=== PATIENT | male | born 1980 | race American Indian/Alaskan Native ===

== ENCOUNTER 2016-09-17 09:56 | Outpatient (CLI) | payer OTHER ==
--- NOTE | 2016-09-17 10:33 | XRay Report ---
RIGHT HAND RADIOGRAPHS INDICATION: Right hand pain. COMPARISON: None similar at this institution. FINDINGS: AP, lateral and oblique right hand radiographs demonstrate normal bones and joints. Mild to moderate dorsal soft tissue swelling noted. No radiopaque foreign body. CONCLUSION: Right hand dorsal soft tissue swelling without acute bony abnormality. Please correlate. Thank you for the opportunity to participate in this patient's care.
== END 2016-09-17 09:57 | disposition home or self-care (01) ==
LOC: XRAY 09:56
PROVIDERS: ATTEND Family Medicine Adult Medicine
DX: M25.549 Pain in joints of unspecified hand (principal); M79.89 Other specified soft tissue disorders